=== PATIENT | female | born 1975 | race Caucasian/White ===

== ENCOUNTER → 2017-12-30 | Day surgery (SDC) | payer OTHER ==
[~2017-12-30] VITALS: Ht 162.6 cm; Wt 97.0 kg
[~2017-12-30] MED LIST: *MEPERIDINE 25 MG INJ VIAL PERIprocedural Use ONLY ONE; *RESP: ALBUTEROL 2.5 MG/3 ML NEB (PRN) PERIprocedural Use ONLY NEB ONE; ATEN50TA PO; BUPR150CR PO; BUPR300T PO; CHLORHEXIDINE GLUCONATE 2 % 1 PACK (2 CLOTHS) TOPICAL PRN; DEXAMETHASONE SOD PHOS 4 MG/ML VIAL IV ONE; DO NOT ADM ANY ANTICOAGULANT DRUGS PRN; GLYCOPYRROLATE 1 MG/5 ML SYRINGE IV PUSH ONE; KETOROLAC TROMETHAMINE 30 MG/ML (IVP) VIAL IV PUSH PRN; LACTATED RINGER'S 1000 ML IV PRN; LEVO25TA4 PO; LIDOCAINE 1%/EPINEPHrine 1:100,000 SOLN 30 ML VIAL ONE; LIDOCAINE HCL 1% PF 5 ML SYRINGE OTHER ONE; METOPROLOL TARTRATE 25 MG TAB PO PRN; MIDAZOLAM HCL 2 MG/2 ML VIAL ONE; NEOSTIGMINE 5 MG/5 ML SYRINGE IV PUSH ONE; ONDANSETRON HCL 4 MG/2 ML VIAL IV ONE; PHENYLEPH/NS 1000 MCG/10 ML SYR IV ONE; POVIDONE IODINE 5% (ANTISEPSIS KIT) 4 APPLICATIONS EACH NARE PRN; PROPOFOL 200 MG/20 ML AMP IV ONE; ROCURONIUM INJ 50 MG/5 ML SYRINGE IV PUSH ONE; SODIUM CHLORID 0.9% 500 ML IV PRN; SUCCINYLCHOLINE CHLORIDE 100 MG/5 ML SYRINGE IV PUSH ONE; SUGAMMADEX SODIUM 200 MG/2 ML VIAL IV PUSH ONE; TYLE325T PO; oxyCODONE/ACETAMINOPHEN 5 MG/325 MG TAB PO PRN
--- NOTE | 2017-12-30 16:39 | MP ---
cc: Haven Mg MD, Marjorie MD Johnson, Kenneth I DATE OF OPERATION: 12/30/2017 DATE OF PROCEDURE: 12/30/2017 PREOPERATIVE DIAGNOSES: 1. Cervical/lower uterine segment mass. 2. Irregular heavy bleeding. POSTOPERATIVE DIAGNOSES: 1. Cervical/lower uterine segment mass. 2. Irregular heavy bleeding. PROCEDURE PERFORMED: Examination under anesthesia, endocervix/cervix biopsy, cystoscopy, proctoscopy. SURGEON: Haven Mg MD NUTRITION TECHNICIAN: Stiven process assistant. ANESTHESIA: Laryngeal mask anesthesia. INTRAOPERATIVE CONSULTATION: Dr. Gonzalo Morgan, Radiation Oncology. HISTORY OF PRESENT ILLNESS: A 41-year-old female who has been having heavy irregular bleeding for an unspecified duration but of many, many months at least, found on exam and imaging to have a very prominent cervical lower uterine segment mass. CAT scan shows mass on the cervix lower uterine segment, which I believe was estimated to be 6-7 cm in diameter and shows no overt adenopathy. No overt metastatic disease. She has been counseled regarding the need to clarify the diagnosis and extent of the problem. She was seen in the preop holding area, where again the findings and plan for a diagnostic surgical procedure are explained. She understands that this is information gathering only, will not treat the problem, but will hopefully help clarify the diagnosis and from that make treatment recommendations. Questions were asked and answered. She expressed good understanding and agreed to move forward. FINDINGS: On exam under anesthesia, there is no appreciably enlarged inguinal lymph nodes. External genitalia without mass or lesion. The cervix is very prominent estimated to be 6-7 cm in diameter peripherally. The cervix is smooth and there is no obvious tumor out on the ectocervix. There is some firmness to the cervix, especially at the 10 to 2 o'clock position. There is necrotic tumor with malodorous discharge that is visible just inside the cervical os. The os is dilated and the cervix is quite prominent, suggesting a large tumor volume within the endocervix. There is some retraction on the right side of the cervix toward the vagina suggesting parametrial infiltration also noted on the left side, not quite as prominent. It is difficult to appreciate the uterine fundus. No other overt mass or nodularity detected on pelvic exam or rectovaginal exam. There is no obvious mass polyp in the anus or rectum. On cystoscopy, the bladder mucosa appeared smooth circumferentially. The ureteral ostia are well visualized. There was good peristalsis and delayed but nonetheless evident peristalsis and efflux of urine from each ureter. On proctosigmoidoscopy to a depth of 20 cm there is no obvious mass polyp. No obvious tumor detected. 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 DESCRIPTION OF PROCEDURE: She was taken to the operating room and placed in dorsal lithotomy position, and after laryngeal mask anesthesia was administered, timeout was undertaken. She was identified by site recognition and hospital ID bracelet and the proposed procedure was reviewed and confirmed. She was placed in lithotomy position. Exam under anesthesia was performed with findings as described above. She was prepped and draped in sterile fashion. In-and-out catheterization of the bladder was performed. Biopsy was obtained from tumor visible in the transformation zone and in the endocervical canal, sent for frozen section analysis. Additional tissue specimens were obtained from the same area and were collected to be evaluated for permanent histopathologic analysis. Dilation and extension into the uterus were not attempted as this would have essentially forced instrumentation directly through the central tumor with risk of hemorrhage. Cystoscopy was performed using a 30-degree scope with findings as described above and then the bladder was drained. Rigid proctosigmoidoscopy was performed with findings as described above. The proctosigmoidoscope was withdrawn. Sterile gloves were changed. Inspection showed the sites to be hemostatic, but Monsel's solution was placed, all inside the endocervical canal over the surface of the reachable tumor and on the tenaculum sites and all sites were completely hemostatic. There were no remaining foreign objects in the vagina. Preliminary and final counts were correct. She was returned to dorsal supine position and was pending reversal of anesthesia when I left the operating room to precede her to the postanesthesia care unit. MD JACQUE Swann/KARINA , 04:07 PM , 04:38 PM
[2017-12-30 18:02] VITALS: BP 127/77; PULSE 104; RESP 18; TEMP 99.5; O2SAT 97
== END | disposition home or self-care (01) ==
LOC: HSDC 11:30
PROVIDERS: ATTEND Obstetrics & Gynecology Gynecologic Oncology
DX: C53.0 Malignant neoplasm of endocervix (principal); N92.6 Irregular menstruation, unspecified
CPT/HCPCS: 00940; 45300; 52000; 57500; 86850; 86900; 86901; 88305; 88331; 88341; 88342; 94664; J0330; J1100; J2175; J2250; J2370; J2405; J2710; J3010; J7120; J7613

== ENCOUNTER 2018-01-21 08:40 | Day surgery (SDC) | payer OTHER ==
[~2018-01-21] VITALS: Ht 162.6 cm; Wt 97.0 kg
[~2018-01-21 08:40] MED LIST changes: -*MEPERIDINE 25 MG INJ VIAL PERIprocedural Use ONLY ONE; -*RESP: ALBUTEROL 2.5 MG/3 ML NEB (PRN) PERIprocedural Use ONLY NEB ONE; -CHLORHEXIDINE GLUCONATE 2 % 1 PACK (2 CLOTHS) TOPICAL PRN; -DEXAMETHASONE SOD PHOS 4 MG/ML VIAL IV ONE; -DO NOT ADM ANY ANTICOAGULANT DRUGS PRN; -GLYCOPYRROLATE 1 MG/5 ML SYRINGE IV PUSH ONE; -KETOROLAC TROMETHAMINE 30 MG/ML (IVP) VIAL IV PUSH PRN; -LACTATED RINGER'S 1000 ML IV PRN; -LIDOCAINE 1%/EPINEPHrine 1:100,000 SOLN 30 ML VIAL ONE; -LIDOCAINE HCL 1% PF 5 ML SYRINGE OTHER ONE; -METOPROLOL TARTRATE 25 MG TAB PO PRN; -MIDAZOLAM HCL 2 MG/2 ML VIAL ONE; -NEOSTIGMINE 5 MG/5 ML SYRINGE IV PUSH ONE; -ONDANSETRON HCL 4 MG/2 ML VIAL IV ONE; -PHENYLEPH/NS 1000 MCG/10 ML SYR IV ONE; -POVIDONE IODINE 5% (ANTISEPSIS KIT) 4 APPLICATIONS EACH NARE PRN; -PROPOFOL 200 MG/20 ML AMP IV ONE; -ROCURONIUM INJ 50 MG/5 ML SYRINGE IV PUSH ONE; -SODIUM CHLORID 0.9% 500 ML IV PRN; -SUCCINYLCHOLINE CHLORIDE 100 MG/5 ML SYRINGE IV PUSH ONE; -SUGAMMADEX SODIUM 200 MG/2 ML VIAL IV PUSH ONE; -oxyCODONE/ACETAMINOPHEN 5 MG/325 MG TAB PO PRN
[2018-01-21] MEDS ORDERED: LOSA25TA PO (09:14)
[2018-01-21] MEDS ORDERED: LABE200T2 PO (09:14)
[2018-01-21 09:15] VITALS: BP 125/75; PULSE 117; RESP 16; TEMP 98.1; O2SAT 98
[2018-01-21] MEDS ORDERED: VANCOMYCIN 1000 MG/NS 250 ML - implanted port/tunneled catheter IV SCH ×2 (09:15)
[2018-01-21] MEDS ORDERED: ceFAZolin 2 GM PREMIX 50 ML - implanted port/tunneled catheter insertion IV SCH (09:15)
[2018-01-21] MEDS ORDERED: MIDAZOLAM HCL 5 MG/5 ML VIAL ONE (11:22)
[2018-01-21] MEDS ORDERED: fentaNYL CITRATE 250 MCG/5 ML AMP ONE (11:22)
[2018-01-21] MEDS ORDERED: LIDOCAINE 1%/EPINEPHrine 1:100,000 SOLN 30 ML VIAL ONE (11:37)
[2018-01-21] MEDS ORDERED: diphenhydrAMINE HCL 50 MG/ML VIAL ONE (12:00)
[2018-01-21] MEDS ORDERED: MIDAZOLAM HCL 2 MG/2 ML VIAL ONE (12:07)
--- NOTE | 2018-01-21 14:05 | RADRPT ---
EXAM DATE: 01/21/2018 12:39 PM EDT AGE/SEX: 42 years / Female INDICATIONS: Patient presents with cervical cancer in need of port placement for treatment. CLINICAL DATA: This is the patient's initial encounter. Patient reports that signs and symptoms have been present for 4 - 6 months and indicates a pain score of 5/10. MEDICAL/SURGICAL HISTORY: Hypertension. Thyroid diseaseHigh CholesterolPVC's Tonsillectomy. Ce rvical Biopsy COMPARISON: No prior exams available for comparison. FLUORO TIME (min): .3 IMAGE SERIES: SEDATION TIME (min): 30 MEDICATION(S): 6mg midazolam (Versed) IV 300mcg fentanyl (Sublimaze) IV 25mg Benedryl IV DEVICE(S): Right 8F Power Port . . PROCEDURE : 1. Continuous pulse oximetry and EKG monitoring. 2. Intravenous conscious sedation. 3. Ultrasound guidance for venous access. 4. Fluoroscopic guided implantable central venous port placement. The patient was placed supine. The neck was prepped in sterile fashion. Full sterile technique was u sed, including cap, mask, sterile gloves and gown, and a large sterile sheet. Hand hygiene and 2% ch lorhexidine Betadine was utilized per protocol for cutaneous antisepsis with appropriate dry time for site. Sterile gel and sterile probe cover were utilized for ultrasound guidance. The skin and sub cutaneous tissues were infiltrated with local anesthetic solution. Under direct ultrasound guidance, central venous access was accomplished in the targeted vessel. The ultrasound images depicting access guidance were stored and saved to PACS for permanent record. A s ubcutaneous pocket was created using blunt dissection. The port was introduced to the pocket. The c atheter tubing was fed through a subcutaneous tunnel to the venotomy site. The catheter tubing was c ut to a suitable length and then was introduced through a valved Peel-Away sheath and positioned with catheter tubing tip at the cavo-atrial junction level. The pocket incision was closed with subcutic ular Vicryl suture. Steri-Strips were applied. The port was flushed and locked with heparin solutio n per protocol. Sterile dressing was applied to the site. The patient tolerated the procedure well. Conscious sedation was performed with the prescribed dosages and duration as above in the presence of an independent trained radiology nurse to assist in the monitoring of the patient. EKG and oximetry remained stable throughout the procedure. The patient tolerated the procedure well and there were no complications. The patient was sent to post anesthesia recovery in stable condition. CONCLUSION: 1. Uncomplicated ultrasound and fluoroscopic guided implanted central venous port catheter placement as described in detail above. An 8 [place] Power port was placed. Electronically signed by: Chris Velez MD 01/21/2018 2:04 PM EDT
== END 2018-01-21 14:35 | disposition home or self-care (01) ==
LOC: HROP 08:40 → HRIP 08:41 → HROP 14:35
PROVIDERS: ATTEND Obstetrics & Gynecology Gynecologic Oncology
DX: C53.9 Malignant neoplasm of cervix uteri, unspecified (principal); I10 Essential (primary) hypertension; E07.9 Disorder of thyroid, unspecified; E78.00 Pure hypercholesterolemia, unspecified; I49.3 Ventricular premature depolarization
CPT/HCPCS: 36561; 76937; 77001; 99152; 99153; C1788; J0690; J1200; J1642; J2250; J3010; J3370; J7050